=== PATIENT | male | born 1980 | race Caucasian/White ===

== ENCOUNTER 2017-06-25 17:17 | Emergency (ER) | payer OTHER ==
[~2017-06-25] VITALS: Ht 154.9 cm; Wt 83.0 kg
[2017-06-25 17:41] VITALS: BP 144/71
--- NOTE | 2017-06-25 17:55 | NUR ---
37/M BIB SELF C/O LESIONS TO RIGHT ANTERIOR NECK X1 WEEK. HX OF HTN,, ANEMIA, HYPERLIDEDMIA, RENAL FAILURE WITH PERITONEAL DIALYSIS.DENIES N/V/D; SKIN IS PINK/WARM/DRY; AAOX4 WITH EVEN AND STEADY GAIT; LUNGS CLEAR BL; PATIENT STATES PAIN OF 0/10 AT THIS TIME.
--- NOTE | 2017-06-25 17:55 | NUR ---
Note undone in EDM - 06/25/17 at 1803 by [email or web address] 37/M BIB SELF C/O LESIONS TO RIGHT ANTERIOR NECK X1 WEEK. HX OF HTN,, ANEMIA, HYPERLIDEDMIA, PERITONEAL DIALYSIS.DENIES N/V/D; SKIN IS PINK/WARM/DRY; AAOX4 WITH EVEN AND STEADY GAIT; LUNGS CLEAR BL; PATIENT STATES PAIN OF 0/10 AT THIS TIME.
--- NOTE | 2017-06-25 18:04 | NUR ---
Dr. Bryson evaluating patient in [facility].
--- NOTE | 2017-06-25 18:10 | NUR ---
Dr. RIOS evaluating patient at bedside.
[2017-06-25 18:11] VITALS: BP 144/71
--- NOTE | 2017-06-25 18:11 | NUR ---
Patient discharged with BP 144/71; DENIES HEADACHE AT THIS TIME; DISCHARGE BY DR RIOS. Written and verbal after care instructions given and explained. Patient alert, oriented and verbalized understanding of instructions. Ambulatory with steady gait. All questions addressed prior to discharge. ID band removed. Patient advised to follow up with PMD. Rx of NAPROSYN, VALIUM & ACYCLOVIR given. Patient educated on indication of medication including possible reaction and side effects. Opportunity to ask questions provided and answered.
== END 2017-06-25 18:11 | disposition home or self-care (01) ==
LOC: MED 17:17 → EDBD 17:17 → MED 18:11
DX: B02.9 Zoster without complications (principal); N18.9 Chronic kidney disease, unspecified; I12.0 Hypertensive chronic kidney disease with stage 5 chronic kidney disease or end stage renal disease; N18.6 End stage renal disease; Z94.0 Kidney transplant status; Z99.2 Dependence on renal dialysis
CPT/HCPCS: 99283